=== PATIENT | male | born 1990 | race Two or more races ===

== ENCOUNTER 2025-06-20 19:04 | Emergency (ER) | payer BC, SELFPAY ==
[2025-06-20 19:12] VITALS: BP 151/95; PULSE 133; RESP 19; TEMP 36.6; O2SAT 96
--- NOTE | 2025-06-20 20:01 | XR_ITS ---
Examination: PA lateral chest 2 views Technique: Upright PA lateral chest 2 views Date and time: June 20, 2025, 2013 hrs. Indications: Shortness of breath difficulty breathing beginning 2 days ago. Findings: Normal heart size. The lungs are clear. The osseous structures are intact. Impression: No active disease
--- NOTE | 2025-06-20 20:04 | PD.EDRME ---
Rapid Medical Screening Exam RME Arrival date/time: 06/20/25 19:04 This is a 34-year-old male that comes in with complaints of throat pain and feels like his throat is swollen and cannot swallow sometimes. Patient also complains of anxiety. Patient also states that he short of breath. Patient does have history of anxiety. Patient has not seen a doctor and had a physical while an overly long time per patient. Patient denies any other past medical history. I have greeted and performed a focused initial assessment of this patient. Initial appropriate labs ordered at this time. A comprehensive ED assessment and evaluation of the patient and analysis of all test and completion of medical decision making process will be conducted by additional ED provider. Chief Complaint: Shortness of Breath/Dyspnea Time Seen by Provider: 06/20/25 19:31 Vital signs: Vital Signs Temperature 97.9 F 06/20/25 19:12 Pulse Rate 133 H 06/20/25 19:12 Respiratory Rate 19 06/20/25 19:12 Blood Pressure 151/95 H 06/20/25 19:12 Pulse Oximetry (%) 96 06/20/25 19:12 Oxygen Delivery Method Room Air 06/20/25 19:12
[2025-06-20 20:20] LABS: Strep A Rapid Positive (Negative)
--- NOTE | 2025-06-20 20:48 | PD.EDSOB ---
ED SOB =RME/HPI General Chief Complaint: Shortness of Breath/Dyspnea Stated Complaint: DIFFICULTY BREATHING X 2 DAYS Time Seen by Provider: 06/20/25 19:31 Arrival date/time: 06/20/25 19:04 This is a 34-year-old male that comes in with complaints of throat pain and feels like his throat is swollen and cannot swallow sometimes. Patient also complains of anxiety. Patient also states that he short of breath. Patient does have history of anxiety. Patient has not seen a doctor and had a physical while an overly long time per patient. Patient denies any other past medical history. RME / HPI RME / HPI Narrative: 06/20/25 19:04 This is a 34-year-old male that comes in with complaints of throat pain and feels like his throat is swollen and cannot swallow sometimes. Patient also complains of anxiety. Patient also states that he short of breath. Patient does have history of anxiety. Patient has not seen a doctor and had a physical while an overly long time per patient. Patient denies any other past medical history. I have greeted and performed a focused initial assessment of this patient. Initial appropriate labs ordered at this time. A comprehensive ED assessment and evaluation of the patient and analysis of all test and completion of medical decision making process will be conducted by additional ED provider. Related Data Previous Rx's ?Medication ?Instructions ?Recorded omeprazole 20 mg capsule,delayed 20 mg PO QDAY #30 caps 05/22/19 release amoxicillin 875 mg-potassium 1 tab PO BID #14 tabs 06/20/25 clavulanate 125 mg tablet hydroxyzine HCl 25 mg tablet 25 mg PO BID anxiety #10 tabs 06/20/25 ibuprofen 800 mg tablet 800 mg PO Q6H PRN pain #14 tabs 06/20/25 Allergies Allergy/AdvReac Type Severity Reaction Status Date / Time No Known Allergies Allergy Verified 06/20/25 19:06 Review of Systems Review of Systems Systems Reviewed: All systems reviewed, normal except as documented Past Medical History Past Medical History CARDIAC: Negative Congestive Heart Failure RESPIRATORY: Negative Chronic Obstructive Pulmonary Disease (COPD) GENITOURINARY: Negative Renal Disease ENDOCRINE: Negative Diabetes Mellitus Type 1 or Diabetes Mellitus Type 2 Social History SMOKING STATUS: Never smoker Travel History EBOLA RISK: No ED Exam Narrative Physical exam: VITAL SIGNS: Reviewed. GENERAL APPEARANCE: Alert and interactive, follows commands, no acute distress, HEAD AND FACE: Non-traumatic. ENT: PERRL, conjuctiva pink and clear, eyelid no trauma, Mucous membrane moist. posterior pharyx erythemic NECK: Supple, nontender, no nuchal rigidity. CHEST: No tenderness, no crepitus, no paradoxical movement, no retractions. LUNGS: Clear, well ventilated, symmetric, no rales, no wheezing, no rhonchi, no stridor, good breath sounds bilaterally. HEART: Regular rate, regular rhythm, no murmur, no gallops. ABDOMEN: Soft, nondistended, no guarding, nontender, no rebound, no masses, NEUROLOGICAL: Gross motor function intact sensory function intact, Appropriate for age. MUSCULOSKELETAL: low back nontender, full range of motion. EXTREMITIES: No redness no swelling no skin breakdown on bilateral foot and leg. Distal neurovascular status intact bilateral foot SKIN: Color pink, dry, no rash, no lacerations, no abrasions, no contusions. Course Quality Measures none Orders Category Date Time Status Bedside COVID-19 Antigen Test NOW Care 06/20/25 20:05 Completed Bedside Influenza A&B Antigen Test NOW Care 06/20/25 20:05 Completed EKG (ED Only) Stat Exams 06/20/25 20:00 Stop Req XR chest 2V Stat Exams 06/20/25 20:01 Completed Strep A Rapid Stat Lab 06/20/25 20:05 Completed Ibuprofen Tab [Motrin Tab] Med 06/20/25 20:50 Discontinued 800 mg PO X1 ONE hydrOXYzine HCL [Atarax] Med 06/20/25 20:01 Discontinued 25 mg PO X1 ONE Vital Signs Vital signs: Vital Signs Temperature 97.9 F 06/20/25 19:12 Pulse Rate 133 H 06/20/25 19:12 Respiratory Rate 19 06/20/25 19:12 Blood Pressure 151/95 H 06/20/25 19:12 Pulse Oximetry (%) 96 06/20/25 19:12 Oxygen Delivery Method Room Air 06/20/25 19:12 Shortness of Breath / Dyspnea MDM Narrative MDM Narrative:: chest x ray: Findings: Normal heart size. The lungs are clear. The osseous structures are intact. Impression: No active disease Strep positive. Will treat patient with Augmentin. Patient told to follow-up with primary provider in 1 to 2 days. [place] to the emergency room symptoms change or worsen. I did give patient a dose of hydroxyzine when he was here because he was very anxious. Mother requested hydroxyzine prescription I did explain that we typically do not write prescriptions for hydroxyzine but I will give him 10 tablets to take home as a prescription. Patient is to follow-up with primary provider in 1 to 2 days. Come back to the emergency room symptoms change or worsen. Patient data External records reviewed:: [facility] previous records Clinical information provided by:: patient Social determinants that could affect healthcare access:: none Patient has the following chronic illnesses:: none How is presenting disease/condition affected by chronic disease/condition?: no chronic disease Evaluation data The following diagnostics were reviewed and interpreted by me:: lab results and radiology exam(s) Lab and/or radiology exams considered but not ordered:: none Interpretation Summary: see note Medications / Prescriptions Medications or Prescriptions considered but not ordered:: none Medication administrations:: Medication Administration History Discontinued Medications Hydroxyzine HCl (Hydroxyzine Hcl 25 Mg Tablet) 25 mg PO X1 ONE Stop: 06/20/25 20:02 Last Admin: 06/20/25 20:07 Dose: 25 mg Documented By: MARIEL Ibuprofen (Ibuprofen Tab 400 Mg Tablet) 800 mg PO X1 ONE Stop: 06/20/25 20:51 Last Admin: 06/20/25 20:56 Dose: 800 mg Documented By: MARIEL see [facility] Consultations Consultation(s) initiated? (list below): No Diagnosis Shortness of Breath Differential Diagnosis: community acquired pneumonia and other (strep throat, anxiety, uri) Most likely diagnosis given after review of the tests above:: anxiety and strep throat Admission Indicated Admission indicated?: not indicated Admission Request Was there a request for admission?: No Disposition Plan Disposition Plan: Discharge Discharge Attestation Discharge Attestation: The patient and all family members were given an opportunity to ask questions and understood the discharge instructions. Discharge instructions specifically effects, indications for sooner follow up or return to the emergency department, and the expected course of current diagnosis. Patient condition: Stable Discharge Plan Plan Patient Disposition: HOME (Self Care) Patient condition on transfer: Stable Prescriptions/Referrals Prescriptions/Med Rec: New amoxicillin-pot clavulanate 875-125 mg tablet 1 tab PO BID Qty: 14 0RF ibuprofen 800 mg tablet 800 mg PO Q6H PRN (Reason: pain) Qty: 14 0RF hydroxyzine HCl 25 mg tablet 25 mg PO BID Qty: 10 0RF No Action omeprazole 20 mg capsule,delayed release(DR/EC) 20 mg PO QDAY Qty: 30 0RF Referrals: Glenroy Murillo MD [Primary Care Provider, [facility]] - In 1 week Problem List Clinical Impression: Acute streptococcal pharyngitis, Anxiety Patient/Caregiver Discharge Instructions Discharge Activity: activity as tolerated Education Materials: ED Anxiety Reaction, ED Pharyngitis, Strep (Confirmed) Additional Instructions: Follow up with primary provider in 1-2 days. Come back to ED if symptoms change or worsen Print Language: Estonian Stand Alone Forms: Gin Award Info., Patient Portal Info Letter PA/CONSUMER RELATIONS SPECIALIST Supervising Physician PA/CONSUMER RELATIONS SPECIALIST Supervising Physician: antonia
[2025-06-20] MEDS: IBUPROFEN TAB 400 MG TABLET 800 MG PO (20:56)
== END 2025-06-20 20:58 | disposition home or self-care (01) ==
PROVIDERS: Nurse Practitioner Family; Emergency Provider Emergency Medicine; PCP Family Medicine
DX: J02.0 Streptococcal pharyngitis (principal); F41.9 Anxiety disorder, unspecified
CPT/HCPCS: 71046; 80053; 83690; 83880; 84484; 85025; 87400; 87651; 87811; 99283; A9270

== ENCOUNTER 2025-10-15 21:59 | Emergency (ER) | payer MEDICAID, SELFPAY ==
[2025-10-15 22:00] VITALS: BMI 38.4
[2025-10-15 22:20] VITALS: BP 113/80; PULSE 103; RESP 20; TEMP 36.8; O2SAT 100
--- NOTE | 2025-10-15 22:24 | XR_ITS ---
Examination: CT abdomen and pelvis without contrast. Coronal 3-D reconstructions. Sagittal 2-D reconstructions. Date and time of exam: October 15, 2025, 10:42 p.m. INDICATIONS: Left flank pain today CTDI: vol (mGy): 13.7 DLP: (mGycm): 806 Technique: Axial images of the abdomen have been obtained, 3 mm slice thickness Intravenous contrast material has not been administered. Low dose protocols were performed. One or more of the following dose reduction techniques were used; automated exposure control, adjustment of the mA and/or KV according to patient size, use of iterative reconstruction technique. Findings: No visualized liver or splenic lesion Gallstones No pancreatic or adrenal mass mild left hydronephrosis secondary to 3 mm distal left ureterovesical junction calculus Aorta normal size No bowel obstruction No pericecal inflammatory change No prostatomegaly IMPRESSION: Cholelithiasis Mild left hydronephrosis secondary to 3 mm distal left ureterovesical junction calculus
--- NOTE | 2025-10-15 22:25 | EDRME_ITS ---
<Statement entered by Eliot Richard DO - 10/15/25 23:14> As co-signing physician, I was present and available for consult prn. I concur with the plan and care as documented by the midlevel provider. Rapid Medical Screening Exam RME Arrival date/time: 10/15/25 21:59 34M with no significant PMH presents to ED with several hours of L flank pain and N/V. Possible dysuria. Chief Complaint: Back Pain/Injury Vital signs: Vital Signs Temperature 98.3 F 10/15/25 22:20 Pulse Rate 103 H 10/15/25 22:20 Respiratory Rate 20 10/15/25 22:20 Blood Pressure 113/80 10/15/25 22:20 Pulse Oximetry (%) 100 10/15/25 22:20 Oxygen Delivery Method Room Air 10/15/25 22:20 Exam: Appears uncomfortable Clinical Impression: kidney stone vs UTI/pyelo vs appy vs diverticulitis
--- NOTE | 2025-10-15 23:03 | PC.NURSE ---
Patient refused morphine endorsing that his pain improved with the medication (ibuprofen 800 mg) he had at home.
[2025-10-15 23:08] LABS: Basophils # (Auto) 0.0 Thou/mm3 (0.0-0.2); Basophils % (Auto) 1 % (0-2.5); Eosinophils # (Auto) 0.1 Thou/mm3 (0.0-0.5); Eosinophils % (Auto) 1 % (0-10); Hematocrit 45.6 % (41.0-53.0); Hemoglobin 15.5 g/dL (13.5-16.0); Immature Granulocytes Auto 0.01 Thou/mm3 (0.00-0.00); Lymphocytes # (Auto) 2.1 Thou/mm3 (1.0-4.8); Lymphocytes % (Auto) 28 % (10-50); Mean Corpuscular HGB Conc 34.0 g/dl (31.0-37.0); Mean Corpuscular Hemoglobin 28.7 pg (25.0-35.0); Mean Corpuscular Volume 84 fL (80-100); Monocytes # (Auto) 0.6 Thou/mm3 (0.0-0.8); Monocytes % (Auto) 8 % (0-12); Neutrophils # (Auto) 4.6 Thou/mm3 (1.8-7.7); Neutrophils % (Auto) 62 % (37-80); Nucleated Red Blood Cell # 0.00 Thou/mm3 (0.00-0.00); Nucleated Red Blood Cell % 0 /100 WBC (0); Platelet Count 314 Thou/mm3 (140-440); RDW Standard Deviation 42.7 fL (35.1-43.9); Red Blood Count 5.40 Miln/mm3 (4.50-5.90); White Blood Count 7.4 Thou/mm3 (3.8-10.6)
[2025-10-15] MEDS: ONDANSETRON ODT 4 MG TABRAP PO (23:08)
[2025-10-15 23:23] LABS: Collection Type, Urine Clean Catch
[2025-10-15 23:25] LABS: Alanine Aminotransferase 31 U/L (10-49); Albumin, Serum 4.6 gm/dL (3.5-5.0); Albumin/Globulin Ratio 1.3 (1.2-2.2); Alkaline Phosphatase 85 U/L (46-116); Anion Gap 10 (7-16); Aspartate Amino Transferase 24 U/L (0-34); BUN/Creatinine Ratio 6 Ratio (12-20); Bilirubin,Total 0.5 mg/dL (0.3-1.2); Blood Urea Nitrogen < 5 mg/dL (9-23); Calcium 10.2 mg/dL (8.3-10.6); Calcium (Corrected) 10.2 mg/dL (8.5-10.1); Carbon Dioxide 25.5 mMol/L (20.0-31.0); Chloride 104 mMol/L (98-107); Creatinine (Component) 0.9 mg/dL (0.6-1.3); Estimated Creatinine Clearance 115.9 mL/min (>60); Globulin 3.5 gm/dL (2.3-3.5); Glucose 100 mg/dL (74-106); Osmolality,Calculated 274 (275-295); Potassium 4.0 mMol/L (3.4-5.1); Sodium 139 mMol/L (136-145); Total Protein 8.1 gm/dL (5.7-8.2); eGFR > 60 See Note
[2025-10-15 23:34] LABS: Bilirubin,Urine Negative (Negative); Blood,Urine 1+ (Negative); Budding Yeast,Urine Present; Clarity,Urine Clear (Clear/Hazy); Color,Urine Lt-Yellow (Lt Yel-Yel); Culture Indicated,Urine Contaminated; Glucose, Urine Negative (Negative); Ketones,Urine Negative (Negative); Leukocyte Esterase,Urine Negative (Negative); Nitrite,Urine Negative (Negative); PH,Urine 6.5 (5.0-7.0); Protein,Urine Negative (Neg - Trace); RBC,Urine 14 /hpf (0-3); Specific Gravity,Urine 1.006 (1.001-1.035); Squamous Epithelial Cell,Urine 24 /hpf (0-5); Urobilinogen,Urine Negative mg/dL (0.0-1.0); WBC,Urine 3534 /hpf (0-5)
[2025-10-15 23:38] VITALS: BP 131/74; PULSE 97; RESP 15; TEMP 37.4; O2SAT 96
[2025-10-15 23:40] LABS: Amphetamine/Methamp Scrn,U Negative (Negative); Barbiturate Screen,Urine Negative (Negative); Benzodiazepines Screen,Urine Negative (Negative); Benzoylecgonine Screen, Ur Negative (Negative); Fentanyl Screen,Urine Negative (Negative); Opiate Screen,Urine Negative (Negative); THC Screen,Urine Negative (Negative)
[2025-10-15 23:56] VITALS: BP 131/74; PULSE 92; RESP 18; TEMP 37; O2SAT 97
--- NOTE | 2025-10-16 00:30 | EDNOTE_ITS ---
ED Back Injury Pain RME/HPI General Chief Complaint: Back Pain/Injury Stated Complaint: LEFT FLANK PAIN Time Seen by Provider: 10/15/25 22:27 Arrival date/time: 10/15/25 21:59 RME / HPI RME / HPI Narrative: 10/15/25 21:59 34M with no significant PMH presents to ED with several hours of L flank pain and N/V. Possible dysuria. Dr. Treviño?s Main ED Evaluation: 34yo male with LLQ pain earlier in the day with urinary frequency and urgency who developed sudden left flank pain at 2100. Associated nausea. Denies gross hematuria, fever, chills, or vomiting. No previous similar episodes or modifying factors. PMH unremarkable. PSH noncontributory. NKA. Related Data Previous Rx's ?Medication ?Instructions ?Recorded omeprazole 20 mg capsule,delayed 20 mg PO QDAY #30 cap s 05/22/19 release amoxicillin 875 mg-potassium 1 tab PO BID #14 tabs clavulanate 125 mg tablet hydroxyzine HCl 25 mg tablet 25 mg PO BID anxiety #10 tabs 06/20/25 ibuprofen 800 mg tablet 800 mg PO Q6H PRN pain #14 t abs 06/20/25 ciprofloxacin HCl 500 mg tablet 500 mg PO BID 7 days # 14 tabs 10/16/25 (Cipro) hydrocodone 5 mg-acetaminophen 325 1 tab PO Q8H PRN pa in #20 tabs 10/16/25 mg tablet promethazine 12.5 mg tablet 12.5 mg PO TID PRN nausea and 10/16/25 vomiting #14 tabs tamsulosin 0.4 mg capsule 0.4 mg PO QDAY 7 days #7 cap s 10/16/25 Allergies Allergy/AdvReac Type Severity Reaction Status Date / Time No Known Allergies Allergy Verified 06/20/25 19:06 Review of Systems Review of Systems Systems Reviewed: All systems reviewed, normal except as documented Past Medical History Past Medical History CARDIAC: Negative Congestive Heart Failure RESPIRATORY: Negative Chronic Obstructive Pulmonary Disease (COPD) GENITOURINARY: Negative Renal Disease ENDOCRINE: Negative Diabetes Mellitus Type 1 or Diabetes Mellitus Type 2 Social History SMOKING STATUS: Never smoker ED Exam Narrative Physical exam: GENERAL APPEARANCE: alert and oriented x 4, complaining of left flank pain, in [id number]-sxohrzzo distress VITALS: All vitals were reviewed and the pulse ox is 97% on room air, which is normal according to my interpretation. HEENT: Normocephalic, atraumatic; pupils equal, round, reactive to light; EOMI; mucous membranes pink, moist; oropharynx clear NECK: Supple LUNGS: CTABL; no wheezes, no rales, no rhonchi HEART: Regular rate, regular rhythm; normal S1, S2; no murmurs ABDOMEN: non distended; soft, mild LLQ tenderness BACK: mild left CVA tenderness EXTREMITIES: atraumatic; no edema NEUROLOGIC: awake; alert and oriented x4; cranial nerves II-XII grossly intact; no focal sensory or motor deficits PSYCHIATRIC: appropriate mood and affect SKIN: warm, dry, slightly pale; no rashes Course Quality Measures none Orders Category Date Time Status CT abdomen pelvis wo con Stat Exams 10/15/25 22:24 Completed CBC Stat Lab 10/15/25 23:00 Completed CMP [Comprehensive Metabolic Panel] Stat Lab 10/15/25 23:00 Completed Drug Screen,Urine Stat Lab 10/15/25 22:54 Completed Urinalysis, C/S if Indicated Stat Lab 10/15/25 22:54 Completed Ketorolac Inj [Toradol Inj] Med 10/15/25 22:24 Discontinued 60 mg IM X1 ONE Morphine* Inj Med 10/16/25 00:41 Discontinued 4 mg IVP X1 ONE Ondansetron Odt [Zofran Odt] Med 10/15/25 22:24 Discontinued 4 mg PO X1 ONE Prochlorperazine Inj [Compazine Inj] Med 10/16/25 00:39 Discontinued 5 mg IV X1 ONE Sodium Chloride 0.9% 1000 ml [Ns] 1,000 ml Med 10/16/25 00:39 Active IV 999 mls/hr cefTRIAXone/D5w 1gm IV premix [Rocephin/D5w 1gm IV Med 10/16/25 00:44 Active premix] 1 gm in 50 ml IV X1 Vital Signs Vital signs: Vital Signs Temperature 98.3 F 10/15/25 22:20 Pulse Rate 103 H 10/15/25 22:20 Respiratory Rate 20 10/15/25 22:20 Blood Pressure 113/80 10/15/25 22:20 Pulse Oximetry (%) 100 10/15/25 22:20 Oxygen Delivery Method Room Air 10/15/25 22:20 Back Pain / Injury MDM Narrative MDM Narrative:: Scribe Attestation: 10/16/25 Maryanne Rosenberg am scribing for and in the presence of Dr. Treviño. 34yo male with LLQ pain earlier in the day with urinary frequency and urgency who developed sudden left flank pain at 2100. Associated nausea. Please see PE findings. Lab markers demonstrated WBC count 7.4, Hgb 15.5, Plt 314, no left shift or bandemia. Chemistries are unremarkable. UA demonstrated 1+ blood and gross pyuria with 3500 cells seen. IV established and patient treated with saline, low dose narcotic analgesics, along with empiric antibiotics with fwli-fo-wlysfult relief. Patient remained stable without signs of sepsis and is considered stable for discharge. Will prescribe narcotic analgesic, anti-emetic, and Flomax to facilitate passage of stone. Additionally, will add antibiotics and recommend close follow-up with urology. Patient data External records reviewed:: [facility] previous records (Per chart review, patient was seen here on 06/20/25 for acute streptococcal pharyngitis.) Clinical information provided by:: patient Social determinants that could affect healthcare access:: none Patient has the following chronic illnesses:: none How is presenting disease/condition affected by chronic disease/condition?: no chronic disease Evaluation data The following diagnostics were reviewed and interpreted by me:: lab results and radiology exam(s) Lab and/or radiology exams considered but not ordered:: none Interpretation Summary: [facility] Report Signed Patient: ROBSON MILLS Record#: [id number] Birthdate: 1990 Age/Sex: 34 / M Location: [facility] Attending Dr: Ordering Physician: Vaibhav García PA-C Date of Service: 10/15/25 Procedure(s): CT abdomen pelvis wo con Accession Number(s): [id number] cc: Glenroy Murillo MD; Mani uCriel MD; Vaibhav García PA-C~ Examination: CT abdomen and pelvis without contrast. Coronal 3-D reconstructions. Sagittal 2-D reconstructions. Date and time of exam: October 15, 2025, 10:42 p.m. INDICATIONS: Left flank pain today CTDI: vol (mGy): 13.7 DLP: (mGycm): 806 Technique: Axial images of the abdomen have been obtained, 3 mm slice thickness Intravenous contrast material has not been administered. Low dose protocols were performed. One or more of the following dose reduction techniques were used; automated exposure control, adjustment of the mA and/or KV according to patient size, use of iterative reconstruction technique. Findings: No visualized liver or splenic lesion Gallstones No pancreatic or adrenal mass mild left hydronephrosis secondary to 3 mm distal left ureterovesical junction calculus Aorta normal size No bowel obstruction No pericecal inflammatory change No prostatomegaly IMPRESSION: Cholelithiasis Mild left hydronephrosis secondary to 3 mm distal left ureterovesical junction calculus Dictated By: Mani Curiel MD Signed By: <Electronically signed by Mani Curiel MD in OV> 10/15/25 1237 Medications / Prescriptions Medications or Prescriptions considered but not ordered:: none Medication administrations:: Medication Administration History Sodium Chloride (Ns) 1,000 mls @ 999 mls/hr IV .Q1H1M ONE Stop: 10/16/25 01:39 Ceftriaxone Sodium/Dextrose (Rocephin/D5w 1gm Iv Premix) 1 gm in 50 mls @ 100 mls/hr IV X1 ONE Stop: 10/16/25 01:13 Discontinued Medications Ketorolac Tromethamine (Ketorolac Inj 60 Mg/2 Ml Vial) 60 mg IM X1 ONE Stop: 10/15/25 22:25 Last Admin: 10/15/25 23:02 Dose: Not Given Documented By: SR Non-Admin Reason: Cancelled by Provider Morphine Sulfate (Morphine Sulf Inj 4 Mg/Ml Vial) 4 mg IVP X1 ONE Stop: 10/16/25 00:42 Ondansetron HCl (Ondansetron Odt 4 Mg Tabrap) 4 mg PO X1 ONE; Protocol Stop: 10/15/25 22:25 Last Admin: 10/15/25 23:08 Dose: 4 mg Documented By: SR Prochlorperazine Edisylate (Prochlorperazine Inj 5 Mg/Ml Vial 2 Ml) 5 mg IV X1 ONE; Protocol Stop: 10/16/25 00:40 see above Consultations Consultation(s) initiated? (list below): No Diagnosis Differential diagnosis back pain/injury: renal colic, pyelonephritis and other (UTI, cystitis) Most likely diagnosis given after review of the tests above:: see clinical impression below Admission Indicated Admission indicated?: not indicated Admission Request Was there a request for admission?: No Disposition Plan Disposition Plan: Discharge Discharge Attestation Discharge Attestation: The patient and all family members were given an opportunity to ask questions and understood the discharge instructions. Discharge instructions specifically effects, indications for sooner follow up or return to the emergency department, and the expected course of current diagnosis. Patient condition: Stable Discharge Plan Plan Patient Disposition: HOME (Self Care) Discharge Disposition comment: STABLE Prescriptions/Referrals Prescriptions/Med Rec: New hydrocodone-acetaminophen 5-325 mg tablet 1 tab PO Q8H MDD 3 TAB PRN (Reason: pain) Qty: 20 0RF promethazine 12.5 mg tablet 12.5 mg PO TID PRN (Reason: nausea and vomiting) Qty: 14 0RF tamsulosin 0.4 mg capsule 0.4 mg PO QDAY 7 Days Qty: 7 0RF ciprofloxacin HCl [Cipro] 500 mg tablet 500 mg PO BID 7 Days Qty: 14 0RF No Action omeprazole 20 mg capsule,delayed release(DR/EC) 20 mg PO QDAY Qty: 30 0RF amoxicillin-pot clavulanate 875-125 mg tablet 1 tab PO BID Qty: 14 0RF ibuprofen 800 mg tablet 800 mg PO Q6H PRN (Reason: pain) Qty: 14 0RF hydroxyzine HCl 25 mg tablet 25 mg PO BID Qty: 10 0RF Referrals: Glenroy Murillo MD [Primary Care Provider, Family Practice] - In 1 week Problem List Clinical Impression: Ureterolithiasis, Hydronephrosis Patient/Caregiver Discharge Instructions Discharge Activity: activity as tolerated Diet Instructions: Force fluids. Education Materials: Preventing Kidney Stones Additional Instructions: Force fluids/medication as directed/follow-up with primary care for referral to urologist within the next 1 to 2 weeks. Return for fevers escalating abdominal pain persistent vomiting or worsening illness. Print Language: Zimbabwean Stand Alone Forms: Gin Award Info., Patient Portal Info Letter
[2025-10-16] MEDS: cefTRIAXone/D5w 1gm IV premix 1 GM/50 ML BAG IV (01:01)
[2025-10-16] MEDS: MORPHINE SULF INJ 4 MG/ML VIAL IVP (01:03)
[2025-10-16] MEDS: PROCHLORPERAZINE INJ 5 MG/ML VIAL 2 ML IV (01:03)
[2025-10-16] MEDS: SODIUM CHLORIDE 0.9% 1000 ML 1,000 ML 999 ML IV (01:03)
[2025-10-16] MEDS: TAMSULOSIN HCL 0.4 MG CAPSULE PO (01:08)
[2025-10-16 02:01] VITALS: PULSE 98; RESP 15; O2SAT 98
== END 2025-10-16 02:10 | disposition home or self-care (01) ==
PROVIDERS: Physician Assistant; Emergency Provider Emergency Medicine; PCP Family Medicine
DX: N13.2 Hydronephrosis with renal and ureteral calculous obstruction (principal)
CPT/HCPCS: 36415; 74176; 80053; 80307; 81001; 85025; 96365; 96375; 99284; J0696; J0780; J2270; J7030; Q0162; A9270